=== PATIENT | male | born 1985 | race Caucasian/White ===

== ENCOUNTER 2025-04-22 07:46 | Emergency (ER) | payer OTHER ==
[~2025-04-22] VITALS: Ht 175.3 cm; Wt 61.2 kg
[~2025-04-22 07:46] MED LIST: METHOCARBAMOL500 MG PO
[2025-04-22 09:38] VITALS: PULSE 80; RESP 16; TEMP 98.3; O2SAT 100
== END 2025-04-22 09:39 | disposition home or self-care (01) ==
LOC: ER 07:49
DX: R07.89 Other chest pain (principal); F12.10 Cannabis abuse, uncomplicated; Z87.19 Personal history of other diseases of the digestive system
CPT/HCPCS: 71045; 93005; 99283